=== PATIENT | male | born 1985 | race Hispanic/Latino ===

== ENCOUNTER 2021-03-22 10:36 | Outpatient (CLI) | payer OTHER | END 2021-03-22 10:37 | disposition home or self-care (01) | LOC: BURRAD 10:36 | PROVIDERS: ATTEND Anesthesiology | DX: M54.50 Low back pain, unspecified (principal); M54.6 Pain in thoracic spine; M41.9 Scoliosis, unspecified; M48.56XD Collapsed vertebra, not elsewhere classified, lumbar region, subsequent encounter for fracture with routine healing | CPT/HCPCS: 72070; 72100 ==